=== PATIENT | female | born 1975 | race Caucasian/White ===

== ENCOUNTER 2017-02-07 18:56 | Emergency (ER) | payer SELFPAY ==
[2017-02-07 19:08] VITALS: BP 126/76
--- NOTE | 2017-02-07 20:46 | ER Document Report ---
HPI - HPI Pain Level: 5 Notes: Patient is a 42-year-old female presents to the ED complaining of nasal congestion/discharge, postnasal drip, bilateral ear popping/clicking, sinus pressure, occasional headache 3 days. Patient has also had a decreased appetite. She has been taking [id number] cold medication with minimal relief. She denies any daily medications. Patient also denies any significant past medical history. Patient is a smoker. Patient denies any fever, dizziness , ear pain, sinus pain, sore throat, cough, wheeze, shortness of breath, dyspnea , chest pain, palpitations, syncope, dyspnea on exertion, abdominal pain, nausea /vomiting/diarrhea, dysuria, hematuria, joint pains, rash. - ROS Notes: REVIEW OF SYSTEMS: CONSTITUTIONAL : Denies fever, chills, or sweats. Denies recent illness. EENT: see HPI CARDIOVASCULAR: Denies chest pain. Denies palpitations or racing or irregular heart beat. Denies ankle edema. RESPIRATORY: Denies cough, cold, or chest congestion. Denies shortness of breath, difficulty breathing, or wheezing. GASTROINTESTINAL: Denies abdominal pain or distention. Denies nausea, vomiting , or diarrhea. Denies blood in vomitus, stools, or per rectum. Denies black, tarry stools. Denies constipation. GENITOURINARY: Denies difficulty urinating, painful urination, burning, frequency, blood in urine, or discharge. MUSCULOSKELETAL: Denies back or neck pain or stiffness. Denies joint pain or swelling. SKIN: Denies rash, lesions or sores. Neuro: see HPI. ALL OTHER SYSTEMS REVIEWED AND NEGATIVE. Dictation was performed using [employer] voice recognition software - REPRODUCTIVE Reproductive: DENIES: : - DERM Skin Color: Normal Past Medical History - Social History Smoking Status: Unknown if Ever Smoked Family History: DM, Hypertension Patient has suicidal ideation: No Patient has homicidal ideation: No Renal/ Medical History: Denies: Hx Peritoneal Dialysis Past Surgical History: Reports: Hx Tubal Ligation - Immunizations Immunizations up to date: Yes Hx Diphtheria, Pertussis, Tetanus Vaccination: Yes Vertical Provider Document - CONSTITUTIONAL Notes: PHYSICAL EXAMINATION: GENERAL: Well-appearing, well-nourished and in no acute distress. HEAD: Atraumatic, normocephalic. EYES: Pupils equal round and reactive to light, extraocular movements intact, sclera anicteric, conjunctiva are normal. ENT: EAC clear b/l. TM's intact b/l without erythema, fluid, or perforation. Nares patent and with scant clear discharge. oropharynx clear without exudates. No tonsilar hypertrophy or erythema. Moist mucous membranes. No sinus tenderness. NECK: Normal range of motion, supple without lymphadenopathy. No rigidity/ meningismus. LUNGS: Breath sounds clear to auscultation bilaterally and equal. No wheezes rales or rhonchi. HEART: Regular rate and rhythm without murmurs, rubs, gallops. ABDOMEN: Soft, nontender, nondistended abdomen. No guarding, no rebound. No masses appreciated. Normal bowel sounds present. No CVA tenderness bilaterally. NEUROLOGICAL: Normal sensory, motor exams PSYCH: Normal mood, normal affect. SKIN: Warm, Dry, normal turgor, no rashes or lesions noted. - INFECTION CONTROL TRAVEL OUTSIDE OF THE [place] IN LAST 30 DAYS: No - RESPIRATORY O2 Sat by Pulse Oximetry: 98 Course - Re-evaluation Re-evalutation: 02/07/17 22:07 Patient is an afebrile, well-hydrated, 42-year-old female presents with an acute URI for the last 3 days, suspect viral at this time based on H&P. Vitals are stable. PE otherwise unremarkable for any bacterial etiology that I could find, today. Encouraged conservative measures for symptoms. I will send her home with prescription for Flonase and Mucinex use as directed. Recheck with her PCM in 2-3 days. Return to the ED with any worsening/concerning symptoms as reviewed. Patient is in agreement. Low suspicion for any ACS, respiratory failure, sepsis, meningitis, PE. - Vital Signs Vital signs: Temp Pulse Resp BP Pulse Ox 98.5 F 97 16 126/76 H 98 02/07/17 19:08 02/07/17 19:08 02/07/17 19:08 02/07/17 19:08 02/07/17 19:08 Discharge - Discharge Clinical Impression: Acute URI Condition: Stable Disposition: HOME, SELF-CARE Additional Instructions: Maintain adequate fluid intake Take meds as directed tylenol/ibuprofen as needed over the counter cold medication as needed for symptoms Humidified air may help F/u: with your PCM in 2-3 days for a recheck Return to the ED with any worsening symptoms and/or development of fever, headache, purulent discharge, chest pain, palpitations, syncope, shortness of breath, trouble breathing, abdominal pain, n/v/d, or other worsening symptoms that are concerning to you. Upper Respiratory Illness You have a viral infection of the respiratory passages -- a "cold." This common infection causes nasal congestion, drainage, and often sore throat and cough. It is caused by a virus and is highly contagious. The disease usually lasts a week or more, though the worst symptoms are usually over in 3 or 4 days. There is no "cure" for the viral infection -- it must run its course. If there is a complication, such as bacterial infection in the nose, sinuses, middle ear, or bronchial tubes, antibiotics may be required, but antibiotics won 't affect the virus. If you smoke, you should STOP!! Drink plenty of fluids. A humidifier may help. An expectorant medication or decongestant may make you more comfortable. Use acetaminophen or ibuprofen for fever or aches. See the doctor if fever persists over two or three days, if there is any significant worsening of your symptoms, or if you simply fail to improve as expected. Prescriptions: Fluticasone Propionate [Flonase Nasal [place] 50 Mcg/[place] 16 gm] 1 spray NASL Q12 #1 inhaler Guaifenesin [Mucinex] 1,200 mg PO BID PRN #10 tbmp.12hr PRN Reason: Forms: Return to Work
== END 2017-02-07 21:00 | disposition home or self-care (01) ==
LOC: ER 18:56
DX: J06.9 Acute upper respiratory infection, unspecified (principal); R09.81 Nasal congestion; R09.82 Postnasal drip; R51 Headache; R63.0 Anorexia
CPT/HCPCS: 99283

== ENCOUNTER 2017-09-12 05:38 | Emergency (ER) | payer SELFPAY ==
[2017-09-12] MEDS ORDERED: KETOROLAC TROMETHAMINE 60 MG/2 ML SDV IM ONE (06:33)
[2017-09-12 06:46] LABS: A TYPE INFLUENZA AG NEGATIVE (NEGATIVE); B INFLUENZA AG NEGATIVE (NEGATIVE)
--- NOTE | 2017-09-12 06:51 | ER Document Report ---
ED General - General Chief Complaint: Flu Symptoms Stated Complaint: FLU LIKE SYMPTOMS Time Seen by Provider: 09/12/17 06:09 Mode of Arrival: Ambulatory Information source: Patient Notes: 42-year-old female presents with complaints of body aches sore throat fevers chills with nausea. Patient denies any actual vomiting patient notes multiple sick contacts with flu TRAVEL OUTSIDE OF THE [place] IN LAST 30 DAYS: No - HPI Onset: Other - 3 days Onset/Duration: Persistent Quality of pain: Achy Severity: Mild Pain Level: 1 Associated symptoms: Body/muscle aches, Chills, Nonproductive cough, Fever Exacerbated by: Denies Relieved by: Denies Similar symptoms previously: No Recently seen / treated by doctor: No - Related Data Allergies/Adverse Reactions: amoxicillin trihydrate [From Augmentin] Allergy (Verified 02/07/17 19:07) Potassium Clavulanate * [From Augmentin] Allergy (Verified 02/07/17 19:07) Past Medical History - Social History Smoking Status: Current Every Day Smoker Cigarette use (# per day): Yes Chew tobacco use (# tins/day): No Smoking Education Provided: Yes - Patient counselled regarding cessation for 4 minutes Family History: DM, Hypertension Patient has suicidal ideation: No Patient has homicidal ideation: No Renal/ Medical History: Denies: Hx Peritoneal Dialysis Past Surgical History: Reports: Hx Tubal Ligation - Immunizations Immunizations up to date: Yes Hx Diphtheria, Pertussis, Tetanus Vaccination: Yes Review of Systems - Review of Systems Notes: REVIEW OF SYSTEMS: CONSTITUTIONAL : Admits to fevers chills EENT: Admits to sore throat CARDIOVASCULAR: Denies chest pain. Denies palpitations or racing or irregular heart beat. Denies ankle edema. RESPIRATORY: Admits to cough GASTROINTESTINAL: Admits to nausea GENITOURINARY: Denies difficulty urinating, painful urination, burning, frequency, blood in urine, or discharge. FEMALE GENITOURINARY: Denies vaginal bleeding, heavy or abnormal periods, irregular periods. Denies vaginal discharge or odor. MUSCULOSKELETAL: Denies back or neck pain or stiffness. Denies joint pain or swelling. SKIN: Denies rash, lesions or sores. HEMATOLOGIC : Denies easy bruising or bleeding. LYMPHATIC: Denies swollen, enlarged glands. NEUROLOGICAL: Denies confusion or altered mental status. Denies passing out or loss of consciousness. Denies dizziness or lightheadedness. Denies headache. Denies weakness or paralysis or loss of use of either side. Denies problems with gait or speech. Denies sensory loss, numbness, or tingling. Denies seizures. PSYCHIATRIC: Denies anxiety or stress. Denies depression, suicidal ideation, or homicidal ideation. ALL OTHER SYSTEMS REVIEWED AND NEGATIVE. PHYSICAL EXAMINATION: GENERAL: Well-appearing, well-nourished and in no acute distress. HEAD: Atraumatic, normocephalic. EYES: Pupils equal round and reactive to light, extraocular movements intact, conjunctiva are normal. ENT: Nares patent, oropharynx clear without exudates. Moist mucous membranes. NECK: Normal range of motion, supple without lymphadenopathy LUNGS: Breath sounds clear to auscultation bilaterally and equal. No wheezes rales or rhonchi. HEART: Regular rate and rhythm without murmurs ABDOMEN: Soft, nontender, nondistended abdomen. No guarding, no rebound. No masses appreciated. Female : deferred Musculoskeletal: Normal range of motion, no pitting or edema. No cyanosis. NEUROLOGICAL: Cranial nerves grossly intact. Normal speech, normal gait. Normal sensory, motor exams PSYCH: Normal mood, normal affect. SKIN: Warm, Dry, normal turgor, no rashes or lesions noted. Dictation was performed using [employer] voice recognition software Physical Exam - Vital signs Vitals: Temp Pulse Resp BP Pulse Ox 98.4 F 91 20 107/61 96 09/12/17 05:49 09/12/17 05:49 09/12/17 05:49 09/12/17 05:49 09/12/17 05:49 Course - Re-evaluation Re-evalutation: 09/12/17 08:28 Rapid flu was negative, examination was quite benign, patient looks well is in no distress vital signs are stable Patient was given Toradol states she feels much better will be given symptomatic care for home After performing a Medical Screening Examination, I estimate there is LOW risk for ACUTE CORONARY SYNDROME, PULMONARY EMBOLI, RESPIRATORY FAILURE, SEPSIS OR MENINGITIS, thus I consider the discharge disposition reasonable. I have reevaluated this patient multiple times and no significant life threatening changes are noted. The patient and I have discussed the diagnosis and risks, and we agree with discharging home with close follow-up. We also discussed returning to the Emergency Department immediately if new or worsening symptoms occur. We have discussed the symptoms which are most concerning (e.g., changing or worsening pain, trouble swallowing or breathing, neck stiffness, fever) that necessitate immediate return. - Vital Signs Vital signs: Temp Pulse Resp BP Pulse Ox 98.4 F 74 16 101/58 L 97 09/12/17 07:07 09/12/17 07:07 09/12/17 07:07 09/12/17 07:07 09/12/17 07:07 Discharge - Discharge Clinical Impression: Viral URI, Body aches Condition: Stable Disposition: HOME, SELF-CARE Instructions: Fever ([facility]), Upper Respiratory Illness ([facility]) Additional Instructions: Follow up with your physician tomorrow for further care or return to the ED IMMEDIATELY if symptoms worsen or new concerns occur. If you cannot afford to follow up with your primary care physician a list of low cost clinics have been provided at the end of your discharge papers as well. Forms: Return to Work
[2017-09-12 07:09] VITALS: BP 101/58
== END 2017-09-12 07:07 | disposition home or self-care (01) ==
LOC: ER 05:38
DX: J06.9 Acute upper respiratory infection, unspecified (principal); M79.1 Myalgia; R50.9 Fever, unspecified; F17.210 Nicotine dependence, cigarettes, uncomplicated; Z88.0 Allergy status to penicillin
CPT/HCPCS: 99283; 87804; J1885

== ENCOUNTER 2017-09-18 21:55 | Emergency (ER) | payer SELFPAY ==
[2017-09-18 22:12] VITALS: BP 116/70
--- NOTE | 2017-09-18 23:48 | ER Document Report ---
ED General - General Mode of Arrival: Ambulatory Information source: Patient TRAVEL OUTSIDE OF THE [place] IN LAST 30 DAYS: No <JANES VALDERRAMA - Last Filed: 09/19/17 00:22> <SEAN ORTIZ - Last Filed: 09/19/17 00:24> - General Chief Complaint: Ear Pain Stated Complaint: EAR PAIN Time Seen by Provider: 09/18/17 23:37 Notes: Patient is a 42 year old female presenting to the emergency department complaining of left ear pain onset yesterday.Patient describes her pain as sharp and states it radiates into the left side of her jaw. Patient states that she recently had a URI and is still currently taking Soudafed. Patient denies any drainage, pain in mouth or taking any nasal steroids. (JANES VALDERRAMA) - Related Data Allergies/Adverse Reactions: amoxicillin trihydrate [From Augmentin] Allergy (Verified 02/07/17 19:07) Potassium Clavulanate * [From Augmentin] Allergy (Verified 02/07/17 19:07) Past Medical History - General Information source: Patient - Social History Smoking Status: Current Every Day Smoker Frequency of alcohol use: None Drug Abuse: None Family History: DM, Hypertension Renal/ Medical History: Denies: Hx Peritoneal Dialysis Past Surgical History: Reports: Hx Tubal Ligation - Immunizations Immunizations up to date: Yes Hx Diphtheria, Pertussis, Tetanus Vaccination: Yes <JANES VALDERRAMA - Last Filed: 09/19/17 00:22> - Social History Smoking Education Provided: Yes - 4 mins <SEAN ORTIZ - Last Filed: 09/19/17 00:24> Review of Systems - Review of Systems Constitutional: No symptoms reported EENT: See HPI Cardiovascular: No symptoms reported Respiratory: No symptoms reported Gastrointestinal: No symptoms reported Genitourinary: No symptoms reported Female Genitourinary: No symptoms reported Musculoskeletal: No symptoms reported Skin: No symptoms reported Hematologic/Lymphatic: No symptoms reported Neurological/Psychological: No symptoms reported -: Yes All other systems reviewed and negative <JANES VALDERRAMA - Last Filed: 09/19/17 00:22> Physical Exam <JANES VALDERRAMA - Last Filed: 09/19/17 00:22> <SEAN ORTIZ - Last Filed: 09/19/17 00:24> - Vital signs Vitals: Temp Pulse Resp BP Pulse Ox 98.2 F 78 16 116/70 98 09/18/17 22:11 09/18/17 22:11 09/18/17 22:11 09/18/17 22:11 09/18/17 22:11 - Notes Notes: GENERAL: Alert, interacts well. No acute distress. HEAD: Normocephalic, atraumatic. EYES: Pupils equal, round, and reactive to light. Extraocular movements intact. ENT: Oral mucosa moist, tongue midline. Left TM is injected. Submandibular lymph nodes enlarged. NECK: Full range of motion. Supple. Trachea midline. EXTREMITIES: Moves all 4 extremities spontaneously. NEUROLOGICAL: Alert and oriented x3. Normal speech. PSYCH: Normal affect, normal mood. SKIN: Warm, dry, normal turgor. No rashes or lesions noted. (JANES VALDERRAMA) Course <JANES VALDERRAMA - Last Filed: 09/19/17 00:22> <SEAN ORTIZ - Last Filed: 09/19/17 00:24> - Re-evaluation Re-evalutation: 09/18/17 23:48 No evidence of bacterial otitis media or otitis externa. Tetracaine drops applied to intact tympanic membrane to help with pain. Patient given tetracaine drops to take home and apply externally as well to help with pain. There is mild erythema of the external auditory canal superiorly otherwise unremarkable. Patient encouraged to use a nasal steroid sprays in addition to the Sudafed and the ibuprofen. Discharged home. 09/19/17 00:23 Patient is quite insistent that she needs antibiotics. Discussed with patient at length that there is no evidence of bacterial infection and all she will receive from antibiotics are side effects such as yeast infection or diarrhea. Patient understands she is being discharged home without antibiotics. (SEAN ORTIZ) - Vital Signs Vital signs: Temp Pulse Resp BP Pulse Ox 98.2 F 78 16 116/70 98 09/18/17 22:11 09/18/17 22:11 09/18/17 22:11 09/18/17 22:11 09/18/17 22:11 Discharge <JANES VALDERRAMA - Last Filed: 09/19/17 00:22> <SEAN ORTIZ - Last Filed: 09/19/17 00:24> - Discharge Clinical Impression: Left ear pain, Tobacco abuse, Tobacco abuse counseling Condition: Stable Disposition: HOME, SELF-CARE Additional Instructions: There is no evidence of bacterial infection. Antibiotics will not help. You need to keep taking Sudafed and ibuprofen. In addition to this please use nasal steroids such as Nasonex or Flonase 2 squirts per nostril twice a day. You may also use tetracaine drops in your left ear that I gave you up to every 4 hours while you are awake. Please return for fevers, drainage from your ears or decreased hearing. Prescriptions: Mometasone Furoate [Nasonex] 17 spr NS BID #1 spray.pump Forms: Smoking Cessation Education Referrals: JULISA TORRES MD [Primary Care Provider] - Follow up as needed Scribe Attestation: 09/19/17 00:24 I personally performed the services described in the documentation, reviewed and edited the documentation which was dictated to the scribe in my presence, and it accurately records my words and actions. (SEAN ORTZI) Scribe Documentation - Scribe Written by Scribe:: Alexandr Cruz, 09/18/2017 00:13 acting as scribe for :: Nora <JANES VALDERRAMA - Last Filed: 09/19/17 00:22>
== END 2017-09-18 23:59 | disposition home or self-care (01) ==
LOC: ER 21:55
DX: H92.02 Otalgia, left ear (principal); R68.84 Jaw pain; F17.200 Nicotine dependence, unspecified, uncomplicated
CPT/HCPCS: 99282

== ENCOUNTER 2018-09-14 12:31 | Emergency (ER) | payer SELFPAY ==
[2018-09-14] MEDS ORDERED: IBUPROFEN 800 MG TABLET PO ONE (13:32)
[2018-09-14] MEDS ORDERED: PSEUDOEPHEDRINE HCL 30 MG TABLET PO ONE (13:33)
--- NOTE | 2018-09-14 13:33 | ER Document Report ---
HPI - HPI Time Seen by Provider: 09/14/18 13:23 Onset: Other - 3 days Onset/Duration: Persistent Quality of pain: Achy Pain Level: 2 Context: Patient presents with a 3-day history of headache sore throat congestion and body aches. No fever. Associated Symptoms: Body/muscle aches, Headache, Sinus pain/drainage, Sore throat. denies: Fever Exacerbated by: Denies Relieved by: Denies Similar symptoms previously: Yes Recently seen / treated by doctor: No - ROS ROS below otherwise negative: Yes Systems Reviewed and Negative: Yes All other systems reviewed and negative - CONSTITUTIONAL Constitutional: REPORTS: Chills. DENIES: Fever - EENT EENT: REPORTS: Sore Throat, Nasal Drainage-Clear, Congestion - NEURO Neurology: REPORTS: Headache - GASTROINTESTINAL Gastrointestinal: DENIES: Patient vomiting, Diarrhea - REPRODUCTIVE Reproductive: DENIES: : - DERM Skin Color: Normal Skin Problems: None Past Medical History - General Information source: Patient - Social History Smoking Status: Current Every Day Smoker Frequency of alcohol use: None Drug Abuse: None Occupation: [employer] Family History: DM, Hypertension Patient has suicidal ideation: No Patient has homicidal ideation: No Renal/ Medical History: Denies: Hx Peritoneal Dialysis Psychiatric Medical History: Reports: Hx Anxiety Past Surgical History: Reports: Hx Tubal Ligation - Immunizations Immunizations up to date: Yes Hx Diphtheria, Pertussis, Tetanus Vaccination: Yes Vertical Provider Document - CONSTITUTIONAL Agree With Documented VS: Yes Exam Limitations: No Limitations General Appearance: WD/WN, No Apparent Distress - INFECTION CONTROL TRAVEL OUTSIDE OF THE [place] IN LAST 30 DAYS: No - HEENT HEENT: Atraumatic, Normocephalic, Pharyngeal Tenderness, Pharyngeal Erythema. negative: Pharyngeal Exudate, Tympanic Membrane Red, Tympanic Membrane Bulging Notes: Clear rhinorrhea - NECK Neck: Normal Inspection, Supple. negative: Lymphadenopathy-Left, Lymphadenopathy-Right - RESPIRATORY Respiratory: Breath Sounds Normal, No Respiratory Distress - CARDIOVASCULAR Cardiovascular: Regular Rate, Regular Rhythm, No Murmur - BACK Back: Normal Inspection - MUSCULOSKELETAL/EXTREMETIES Musculoskeletal/Extremeties: MAEW, FROM - NEURO Level of Consciousness: Awake, Alert, Appropriate Motor/Sensory: No Motor Deficit - DERM Integumentary: Warm, Dry, No Rash Course - Vital Signs Vital signs: Temp Pulse Resp BP Pulse Ox 98.3 F 82 16 125/77 98 09/14/18 12:44 09/14/18 12:44 09/14/18 12:44 09/14/18 12:44 09/14/18 12:44 Discharge - Discharge Clinical Impression: Upper respiratory infection Qualifiers: URI type: unspecified URI Qualified Code(s): J06.9 - Acute upper respiratory infection, unspecified Condition: Stable Disposition: HOME, SELF-CARE Instructions: Sore Throat ([facility]), Upper Respiratory Illness ([facility]) Additional Instructions: Return immediately for any new or worsening symptoms Followup with your primary care provider, call tomorrow to make a followup appointment Use saline nasal spray [id number] to help with sinus congestion Prescriptions: Guaifenesin/Pseudoephedrne HCl [Mucinex D ER Tablet] 1 each PO Q12 PRN #12 tab.er.12h PRN Reason: Naproxen [Naprosyn 250 Nmg Tablet] 1 tab PO BID #14 tablet Forms: Smoking Cessation Education, Return to Work Referrals: JULISA TORRES MD [Primary Care Provider] - Follow up as needed
[2018-09-14 14:35] VITALS: BP 130/82
== END 2018-09-14 14:35 | disposition home or self-care (01) ==
LOC: ER 12:31
DX: J06.9 Acute upper respiratory infection, unspecified (principal); R51 Headache; J02.9 Acute pharyngitis, unspecified; R09.81 Nasal congestion; M79.10 Myalgia, unspecified site; R09.89 Other specified symptoms and signs involving the circulatory and respiratory systems; F17.200 Nicotine dependence, unspecified, uncomplicated
CPT/HCPCS: 87070; 87880; 99283

== ENCOUNTER 2020-07-14 20:26 | Emergency (ER) | payer OTHER ==
--- NOTE | 2020-07-14 21:10 | ER Document Report ---
ED Medical Screen (RME) - General Stated Complaint: FALL/POSSIBLE INJURY TO RIGHT KNEE Primary Care Provider: JULISA TORRES MD [Primary Care Provider] - Follow up as needed KIRSTEN BANKS DO [ACTIVE STAFF] - Follow up as needed TRAVEL OUTSIDE OF THE [place] IN LAST 30 DAYS: No - HPI Notes: Chief Complaint: Historian: History obtained from patient HPI: Pt is 45yo female that presents to the ER c/o right knee pain after a fall while going down the stairs tonight. Pt says her boots were wet and her foot slipped off the stair and she fell backwards and caught herself. when she stood back up she had ''pulling'' pain to the lateral right knee and posterior knee. ROS: Constitutional: no fevers. HEENT: no LYMAN, sore throat, or vision changes. CV: no chest pain or palpitations. Resp: no cough or SOB. GI: no abdominal pain, or n/v/d. : no dysuria, hematuria, or incont. MSK: no back pain, no joint swelling/redness. Skin: no rashes or itching. Neuro: no seizures, weakness, numbness, or confusion. Hematological: no ecchymosis or easy bleeding. Endocrine: no polyuria/polydipsia, no heat/cold intolerance. Psych: no SI/HI, AH/VH or memory loss. PMHx: Reviewed and agree as charted by RN. PSHx: Reviewed and agree as charted by RN. SOCHx: Reviewed and agree as charted by RN. FHX: No significant familial comorbid conditions directly related to patient complaint Current Medications: Reviewed and agree with the patient medications as charted by the RN. Allergies: Reviewed and agree with the listed allergies as charted by the RN Physical Exam: Vitals: Reviewed in chart as documented by RN. General: Alert and in NAD. Head: Normocephalic; atraumatic Eyes: PERRLA, Conjunctivae clear sclerae non-icteric bilat ENT: no soft palate swelling or uvular deviation Neck: trachea midline, no unilateral swelling/tenderness/lymphadenopathy CV: RRR, no M/R/G; symmetric distal pulses Resp: respirations even and unlabored, CTA bilat. GI: abd soft and nondistended. NTTP. normal BS. no masses/HSM. no CVAT bilat MSK: Right kneeno obvious effusion or deformity. Patient is tender to the right lateral knee adjacent to the patella. No joint line tenderness. Straight leg raise intact. No laxity anterior posterior drawer or varus valgus stress. Full range of motion in hip and ankle. Pulses 2+. Sensation intact distally. Full range of motion of the hip ankle and toes. Skin: warm, moist, good turgor. no rash/lesions Neuro: Alert and oriented X 4. following CN 2-12 intact. no unilateral weakness/numbness Psych: No SI/HI or AH/VH. ED Results: Medical Decision-Making: knee sprain vs fracture vs dislocation vs internal derrangement will get knee XR. suspect knee sprain. 07/14/20 21:12 07/14/20 21:53 - Related Data Allergies/Adverse Reactions: amoxicillin trihydrate [From Augmentin] Allergy (Verified 09/14/18 12:35) Potassium Clavulanate * [From Augmentin] Allergy (Verified 09/14/18 12:35) Past Medical History Renal/ Medical History: Denies: Hx Peritoneal Dialysis Psychiatric Medical History: Reports: Hx Anxiety Comment Only: Hx Depression - anxiety Past Surgical History: Reports: Hx Tubal Ligation - Immunizations Immunizations up to date: Yes Hx Diphtheria, Pertussis, Tetanus Vaccination: Yes Physical Exam - Vital signs Vitals: Temp Pulse Resp BP Pulse Ox 97.9 F 103 H 17 128/73 H 98 07/14/20 20:35 07/14/20 20:35 07/14/20 20:35 07/14/20 20:35 07/14/20 20:35 Course - Vital Signs Vital signs: Temp Pulse Resp BP Pulse Ox 98.0 F 88 20 130/80 H 100 07/14/20 23:06 07/14/20 23:06 07/14/20 23:06 07/14/20 23:06 07/14/20 23:06 Doctor's Discharge - Discharge Clinical Impression: Right knee injury Qualifiers: Encounter type: initial encounter Qualified Code(s): S89.91XA - Unspecified injury of right lower leg, initial encounter Condition: Stable Disposition: HOME, SELF-CARE Instructions: Sprained Knee ([facility]) Additional Instructions: Rest ice wrap and elevate knee. Weightbearing as tolerated. Take medications as prescribed. May also take Tylenol. Follow-up with orthopedics if your symptoms do not proving within the week, call and schedule an appointment. Return to the ER if your condition worsens. Prescriptions: Ketorolac Tromethamine [Toradol 10 mg Tablet] 10 mg PO Q6HP PRN #15 tablet PRN Reason: Forms: Return to Work Referrals: JULISA TORRES MD [Primary Care Provider] - Follow up as needed KIRSTEN BANKS DO [ACTIVE STAFF] - Follow up as needed
--- NOTE | 2020-07-14 22:02 | ER Document Report ---
ED Extremity Problem, Lower - General Chief Complaint: Knee Injury Stated Complaint: FALL/POSSIBLE INJURY TO RIGHT KNEE Primary Care Provider: JULISA TORRES MD [Primary Care Provider] - Follow up as needed TRAVEL OUTSIDE OF THE [place] IN LAST 30 DAYS: No - HPI Notes: Chief Complaint: fall, right knee pain Historian: History obtained from patient HPI: This is a Pt is 45yo female that presents to the ER c/o right knee pain after a fall while going down the stairs tonight. Pt says her boots were wet and her foot slipped off the stair and she fell backwards and caught herself. when she stood back up she had ''pulling'' pain to the lateral right knee and posterior knee. ROS: Constitutional: no fevers. HEENT: no LYMAN, sore throat, or vision changes. CV: no chest pain or palpitations. Resp: no cough or SOB. GI: no abdominal pain, or n/v/d. : no dysuria, hematuria, or incont. MSK: Right knee pain Skin: no rashes or itching. Neuro: no seizures, weakness, numbness, or confusion. Hematological: no ecchymosis or easy bleeding. Endocrine: no polyuria/polydipsia, no heat/cold intolerance. Psych: no SI/HI, AH/VH or memory loss. PMHx: Reviewed and agree as charted by RN. PSHx: Reviewed and agree as charted by RN. SOCHx: Reviewed and agree as charted by RN. FHX: No significant familial comorbid conditions directly related to patient complaint Current Medications: Reviewed and agree with the patient medications as charted by the RN. Allergies: Reviewed and agree with the listed allergies as charted by the RN Physical Exam: Vitals: Reviewed in chart as documented by RN. General: Alert and in NAD. Head: Normocephalic; atraumatic Eyes: PERRLA, Conjunctivae clear sclerae non-icteric bilat ENT: no soft palate swelling or uvular deviation Neck: trachea midline, no unilateral swelling/tenderness/lymphadenopathy CV: RRR, no M/R/G; symmetric distal pulses Resp: respirations even and unlabored, CTA bilat. GI: abd soft and nondistended. NTTP. normal BS. no masses/HSM. no CVAT bilat MSK: Right kneeno swelling, deformity, erythema. Mild tenderness just lateral to the patella. No joint line tenderness. Mild posterior knee tenderness but no pulsatile mass. Straight leg raise intact. Anterior and posterior drawer negative. No laxity with varus valgus stress. Pedal pulse 2+. Cap refill less than 3 seconds. Sensory intact distally. Full range of motion of hip ankle and toes. Skin: warm, moist, good turgor. no rash/lesions Neuro: Alert and oriented X 4. following CN 2-12 intact. no unilateral weakness/numbness Psych: No SI/HI or AH/VH. ED Results: Medical Decision-Making: Medical Decision-making/Differential Diagnosis: Consider various etiologies including but not limited to skin/soft tissue structure injury, MSK injury, strain/sprain, fracture, dislocation, bursitis, tendonitis, contusion, ect Plan-we will get knee x-ray. I suspect this is a knee sprain. Will give crutches and Owen wrap. Home care with rice, NSAIDs/Tylenol, and orthopedic referral for follow-up. Patient instructed to follow-up with orthopedics if her pain is not improving within the week for further evaluation of possible internal derangement of the knee. Return factors discussed. This course of action was discussed with the patient and/or family. They were amenable to this, verbalized understanding, and were without further questions. - Related Data Allergies/Adverse Reactions: amoxicillin trihydrate [From Augmentin] Allergy (Verified 09/14/18 12:35) Potassium Clavulanate * [From Augmentin] Allergy (Verified 09/14/18 12:35) Past Medical History - Social History Smoking Status: Current Every Day Smoker Family History: DM, Hypertension Renal/ Medical History: Denies: Hx Peritoneal Dialysis Psychiatric Medical History: Reports: Hx Anxiety Comment Only: Hx Depression - anxiety Past Surgical History: Reports: Hx Tubal Ligation - Immunizations Immunizations up to date: Yes Hx Diphtheria, Pertussis, Tetanus Vaccination: Yes Physical Exam - Vital signs Vitals: Temp Pulse Resp BP Pulse Ox 97.9 F 103 H 17 128/73 H 98 07/14/20 20:35 07/14/20 20:35 07/14/20 20:35 07/14/20 20:35 07/14/20 20:35 Course - Re-evaluation Re-evalutation: 07/14/20 22:28 I reviewed patient's imaging, no signs of acute fracture or dislocation. Pending official radiology read. Will discharge patient with initial plan with Owen wrap, crutches, NSAIDs/Tylenol and rice. Ortho referral given. - Vital Signs Vital signs: Temp Pulse Resp BP Pulse Ox 97.9 F 103 H 17 128/73 H 98 07/14/20 20:35 07/14/20 20:35 07/14/20 20:35 07/14/20 20:35 07/14/20 20:35 Discharge - Discharge Clinical Impression: Right knee injury Qualifiers: Encounter type: initial encounter Qualified Code(s): S89.91XA - Unspecified injury of right lower leg, initial encounter Condition: Stable Disposition: HOME, SELF-CARE Instructions: Sprained Knee ([facility]) Additional Instructions: Rest ice wrap and elevate knee. Weightbearing as tolerated. Take medications as prescribed. May also take Tylenol. Follow-up with orthopedics if your symptoms do not proving within the week, call and schedule an appointment. Return to the ER if your condition worsens. Prescriptions: Ketorolac Tromethamine [Toradol 10 mg Tablet] 10 mg PO Q6HP PRN #15 tablet PRN Reason: Forms: Return to Work Referrals: JULISA TORRES MD [Primary Care Provider] - Follow up as needed KIRSTEN BANKS DO [ACTIVE STAFF] - Follow up as needed
--- NOTE | 2020-07-14 22:54 | RADIOLOGY REPORT (SQ) ---
EXAM DESCRIPTION: X-ray right knee 4 views COMPLETED DATE/TME: 07/14/2020 22:01 CLINICAL HISTORY: 45 years, Female, fall COMPARISON: None. NUMBER OF VIEWS: TECHNIQUE: LIMITATIONS: None. FINDINGS: No fracture or dislocation. There is no significant sized knee joint effusion. There is a possible bipartite patella, a normal variant. IMPRESSION: No fracture or dislocation. copyright 2010 [employer]- All Rights Reserved
[2020-07-14 23:08] VITALS: BP 130/80
== END 2020-07-14 23:08 | disposition home or self-care (01) ==
LOC: ER 20:26
DX: S89.91XA Unspecified injury of right lower leg, initial encounter (principal); M25.561 Pain in right knee; W10.9XXA Fall (on) (from) unspecified stairs and steps, initial encounter; F17.200 Nicotine dependence, unspecified, uncomplicated; Z98.51 Tubal ligation status
CPT/HCPCS: 99283